=== PATIENT | female | born 1995 | race Caucasian/White ===

== ENCOUNTER → 2017-04-16 | Day surgery (SDC) | payer OTHER ==
[~2017-04-16] MED LIST: IBUPROFEN800 MG PO; PROZAC10 M1 PO
--- NOTE | ~2017-04-16 | OR ---
Unit #: [id number] #: [id number] Patient: EARNEST ELI [id number] [address] [id number] O MR#: [id number] NAME: EARNEST ELI ROOM: Date of Procedure: 04/16/2017 Admission Date: 04/16/2017 Surgeon: Wilson Hurst M.D. : 1995 Attending Physician: Wilson Hurst M.D. Referring Physician: Wilson Hurst M.D. Primary Care Physician: Landy Shields A.P.R.N. OPERATIVE REPORT PREOPERATIVE DIAGNOSES Chronic cholecystitis with cholelithiasis. POSTOPERATIVE DIAGNOSES Chronic cholecystitis with cholelithiasis. PROCEDURE PERFORMED Laparoscopic cholecystectomy. ANESTHESIA General endotracheal anesthesia. ESTIMATED BLOOD LOSS Less than 10 mL. INDICATIONS FOR PROCEDURE Ms. Eli is an otherwise healthy 21-year-old female, who presented with postprandial nausea and right upper quadrant pain radiating to the back. In the emergency room, a CT scan revealed cholelithiasis with normal biliary ductal system. Preoperative liver chemistries were normal. DESCRIPTION OF PROCEDURE The patient was admitted to [facility], positively identified, and transported to the operating room, and after induction of general endotracheal anesthesia, she received antibiotics per [facility] protocol. She was prepped and draped in usual sterile fashion. A 5-mm infraumbilical incision was made. Veress needle was placed. Pneumoperitoneum was created. Then, a 5-mm trocar was placed. Laparoscope was introduced into the peritoneal cavity. Under direct vision, the epigastric and lateral ports were placed. Gallbladder was grasped and elevated. The infundibulum was identified and retracted laterally, and the triangle of Calot was dissected out clearly identifying the cystic duct, gallbladder, and cystic duct-common duct junction and the posteriorly placed cystic artery. The cystic duct was swept upwards and then a clip was placed on the cystic duct as it entered the gallbladder. Three clips were placed distally and the cystic duct was sharply divided. Posteriorly, the cystic artery was doubly clipped proximally and distally and divided. The gallbladder was then dissected out of liver bed using cautery dissection. Once it was freed up from its hepatic attachments, it was brought out through the epigastric port. There was no spillage of bile or stones. The epigastric fascial defect was closed using a neoClose device and the closure was airtight. I then reduced the pneumoperitoneum Unit #: [id number] #: [id number] Patient: EARNEST ELI as I removed laparoscope and trocars. 0.5% Marcaine with epinephrine was infiltrated in each trocar site. The skin was closed with 4-0 Monocryl subcuticular closure and Dermabond skin adhesive. Sponges and needle counts were correct x3. The patient tolerated the procedure well and transported to recovery in stable condition. Findings and postoperative instructions were discussed with the patient and her family. Dictated by... Ricky Gray/miquel TD: 04/16/2017 17:33 JOB #: [id number] OPERATIVE REPORT Page 1 of 1 X Wilson Hurst MD X PROCEDURE OPERATIVE NOTE
[2017-04-16 12:09] LABS: BASOPHIL# 0.1 X10e3 (0-0.3); BASOPHIL% 1.2 % (0-2.5); EOSINOPHIL# 0.2 X10e3 (0-0.7); EOSINOPHIL% 4.4 % (0.0-7.0); HEMATOCRIT 35.3 % (35.0-45.0); HEMOGLOBIN 12.2 gm/dL (12.0-16.0); LYMPHOCYTE# 1.7 X10e3 (1.0-3.5); LYMPHOCYTE% 35.2 % (17.0-45.0); MEAN CELL VOLUME 86.3 FL (83-96); MEAN CORPUSCULAR HEMOGLOBIN 29.9 PG (28-34); MEAN CORPUSCULAR HGB CONC 34.6 g/dL (30-36); MEAN PLATELET VOLUME 9.5 FL (6.5-11.5); MONOCYTE# 0.4 X10e3 (0-1.0); MONOCYTE% 8.4 % (3.0-12.0); NEUTROPHIL# 2.5 X10e3 (1.5-7.1); NEUTROPHIL% 50.8 % (40-75); PLATELET COUNT 169 X10e3 (140-420); RED CELL DISTRIBUTION WIDTH 12.2 % (11.0-15.5); WHITE BLOOD COUNT 4.9 X10e3 (4.0-10.5)
[2017-04-16 12:10] LABS: DIFF IND NO
[2017-04-16 12:31] LABS: ALBUMIN SERUM 4.2 g/dL (3.5-5.0); BILIRUBIN,TOTAL 1.4 mg/dL (0.2-2.0); BUN/CREATININE RATIO 11.25; CALCIUM SERUM 9.2 mg/dL (8.4-10.2); CREATININE SERUM 0.8 mg/dL (0.6-1.4); POTASSIUM 3.8 mmol/L (3.5-5.1); PROTEIN TOTAL SERUM 6.6 g/dL (6.0-8.3)
== END | disposition home or self-care (01) ==
LOC: CSUR 11:05
PROVIDERS: Specialist
DX: K80.10 Calculus of gallbladder with chronic cholecystitis without obstruction (principal); F17.210 Nicotine dependence, cigarettes, uncomplicated; Z87.442 Personal history of urinary calculi; Z87.440 Personal history of urinary (tract) infections; Z79.1 Long term (current) use of non-steroidal anti-inflammatories (NSAID); Z79.899 Other long term (current) drug therapy; Z98.890 Other specified postprocedural states
CPT/HCPCS: 80053; 84703; 85025; 88304; J0330; J0690; J1100; J1885; J2250; J2710; J3010